=== PATIENT | female | born 1930 | race Caucasian/White ===

== ENCOUNTER → 2016-08-24 | Day surgery (SDC) | payer OTHER ==
[~2016-08-24] MED LIST: LACTATED RINGER'S 1000 ML INJ 1,000 ML ONE; LIDOCAINE 1%/EPINEPHrine 1:100,000 SOLN 20 ML VIAL ONE; MIDAZOLAM HCL 2 MG/2 ML VIAL ONE; ONDANSETRON HCL 4 MG/2 ML VIAL IV PUSH ONE; PROPOFOL 100 MG/10 ML INJ IV ONE; ceFAZolin 2 GM PREMIX 50 ML ONE
--- NOTE | 2016-08-24 16:23 | TN ---
cc: LIZA SANTOS M.D. DATE OF SURGERY 08/24/2016 PREOPERATIVE DIAGNOSIS Palpable mass right breast. History of right breast cancer. POSTOPERATIVE DIAGNOSES Palpable mass right breast. History of right breast cancer. PROCEDURE Right breast lumpectomy. SURGEON Dr. Liza Santos [employer]LECT[employer] ANTHONY Kang ANESTHESIA General TIVA. INDICATIONS A very pleasant 86-year-old woman with a previous history of right breast cancer who has developed a palpable mass in the right breast directly adjacent to her lumpectomy cavity. The mass has not gotten smaller, in fact, may have increased in size slightly. Differential diagnosis includes fat necrosis versus recurrent cancer. Recommendations were made for lumpectomy. INTRAOPERATIVE FINDINGS Successful removal with clinical apparent margin around the palpable lump. Short stitch superior anterior, long stitch lateral posterior. Specimen sent to pathology. ESTIMATED BLOOD LOSS Less than 5 ml. DESCRIPTION OF PROCEDURE IN DETAIL The patient was identified as Salome Arambula, taken to the operating room and placed in the supine position. Sequential compression devices were placed on bilateral lower extremities. Following installation of IV anesthesia for general TIVA case the right breast was prepped and draped in the usual sterile fashion with Betadine. A time-out procedure was performed. Following completion of time-out procedure to everyone's satisfaction within the room proposed elliptical incision including the area of concern was carried out with the marking pen and infiltrated with local anesthetic. Incision was carried out with the scalpel and hemostasis controlled with electrocautery. Specimen was removed from surrounding tissues down to the pectoralis major muscle as the deep margin to get some normal tissue around this palpable lump. When the lump was removed with the ellipse of skin and there appeared to be normal tissue with adequate margin around the palpable lump. Specimen was marked, sent to pathology for permanent section. The wound was irrigated copiously with saline. Small bleeding points were controlled with electrocautery. The wound was in the upper inner quadrant so there was not much surrounding breast tissue that could be mobilized to fill the space. 3-0 Vicryl was used in the deep breast tissue and then the subcutaneous tissue and deep dermis. Skin was approximated with a running 4-0 Monocryl subcuticular suture. About 8 cc of local anesthetic was placed within the lumpectomy cavity. The wound was dressed with Mastisol, half inch brown Steri-Strips, gauze and Tegaderm. The patient tolerated the procedure without apparent complication. Sponge, needle and instrument counts were correct at the end of the case. MD YARELIS Calderon/ERNST /4:03 PM /4:15 PM
== END | disposition home or self-care (01) ==
LOC: ESDC 13:05
PROVIDERS: ATTEND Surgery Trauma Surgery
DX: N64.1 Fat necrosis of breast (principal); Z85.3 Personal history of malignant neoplasm of breast
CPT/HCPCS: 00400; 19120; 88307; J0690; J2250; J2405; J3010; J7120